=== PATIENT | female | born 1995 | race Caucasian/White ===

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

== ENCOUNTER 2017-05-31 01:28 | Emergency (ER) | payer OTHER, MEDICAID ==
[~2017-05-31] VITALS: Ht 167.6 cm; Wt 68.6 kg
[2017-05-31 02:52] VITALS: BP 155/86
== END 2017-05-31 02:52 | disposition short-term general hospital (02) ==
LOC: ED 01:28
DX: O47.03 False labor before 37 completed weeks of gestation, third trimester (principal); O24.013 Pre-existing type 1 diabetes mellitus, in pregnancy, third trimester; E10.65 Type 1 diabetes mellitus with hyperglycemia; O13.3 Gestational [pregnancy-induced] hypertension without significant proteinuria, third trimester; Z3A.34 34 weeks gestation of pregnancy; Z79.4 Long term (current) use of insulin; T38.3X6A Underdosing of insulin and oral hypoglycemic [antidiabetic] drugs, initial encounter; O99.333 Smoking (tobacco) complicating pregnancy, third trimester; F17.210 Nicotine dependence, cigarettes, uncomplicated

== ENCOUNTER → 2017-09-13 | Outpatient (CLI) | payer OTHER ==
[2017-09-13 15:56] LABS: BASO # 0.1 (0.02-0.10); EOS % 0.6 % (0.1-4.0); HEMATOCRIT 44.2 % (35.0-45.0); HEMOGLOBIN 15.1 g/dL (12.0-15.0); MEAN CELL VOLUME 87 fl (78-95); MEAN CORPUSCULAR HEMOGLOBIN 30 pg (26-32); MEAN CORPUSCULAR HGB CONC 34 g/dL (33-37); MONO # 0.4 (0.10-0.60); NEU # 4.4 (1.40-6.50); PLATELET COUNT 385 K/mm3 (130-400); RED CELL DISTRIBUTION WIDTH 12.6 % (11.5-14.5)
[2017-09-13 16:16] LABS: ALBUMIN 4.7 g/dL (3.5-5.0); BUN/CREATININE RATIO 22.3 (6.0-26.0); CALCIUM 9.7 mg/dL (8.4-10.2); POTASSIUM 5.3 mmol/L (3.6-5.0); TOTAL BILIRUBIN 0.7 mg/dL (0.2-1.3); TOTAL PROTEIN 7.6 g/dL (6.3-8.2)
== END ==
LOC: LAB 15:12
PROVIDERS: Internal Medicine
DX: E10.65 Type 1 diabetes mellitus with hyperglycemia (principal)